=== PATIENT | female | born 1940 | race Caucasian/White ===

== ENCOUNTER 2022-08-14 17:00 | Inpatient (IN) | payer MEDICARE ==
[~2022-08-14] VITALS: Ht 154.9 cm; Wt 70.8 kg
[2022-08-14 17:55] LABS: BASOPHILS % 0.7 % (0.0-1.0); EOSINOPHILS # (AUTO) 0.2 (0.0-0.4); EOSINOPHILS % 3.8 % (0.0-6.0); HEMATOCRIT 39.5 % (34.2-44.1); HEMOGLOBIN 12.9 g/dL (12.0-16.0); LYMPHOCYTES % 35.6 % (18.0-39.1); MEAN CORPUSCULAR HEMOGLOBIN 29.7 pg (28-32); MEAN CORPUSCULAR HGB CONC 32.7 g/dL (31-35); MEAN CORPUSCULAR VOLUME 90.8 fL (81-99); MONOCYTES # (AUTO) 0.6 (0.2-0.8); MONOCYTES % 9.9 % (4.4-11.3); NEUTROPHILS # (AUTO) 2.7 (2.1-6.9); NEUTROPHILS % 48.6 % (38.7-80.0); PLATELET COUNT 243 x10e3/uL (140-360); RED BLOOD COUNT 4.35 x10e6/uL (3.6-5.1); RED CELL DISTRIBUTION WIDTH 13.9 % (11.7-14.4)
[2022-08-14 17:58] LABS: INR 1.35; PARTIAL THROMBOPLASTIN TIME 28.5 seconds (23.8-35.5); PROTHROMBIN TIME 16.9 seconds (11.9-14.5)
[2022-08-14 18:05] LABS: ALBUMIN 4.1 g/dL (3.5-5.0); ALBUMIN/GLOBULIN RATIO 1.3 (0.8-2.0); ANION GAP 15.3 mmol/L (8-16); CALCIUM 10.3 mg/dL (8.4-10.2); CREATININE, SERUM 0.98 mg/dL (0.57-1.11); POTASSIUM 4.3 mmol/L (3.5-5.1)
[2022-08-14 18:12] LABS: CREATINE KINASE MB 1.1 ng/mL (0-5.0)
[2022-08-14 18:19] LABS: COLOR,URINE YELLOW (YELLOW)
[2022-08-14 18:20] LABS: CLARITY,URINE CLEAR (CLEAR); KETONES,URINE NEGATIVE (NEGATIVE); LEUKOCYTE ESTERASE ,URINE TRACE (NEGATIVE); NITRITE,URINE NEGATIVE (NEGATIVE); PROTEIN,URINE DIPSTICK NEGATIVE (NEGATIVE); URINE UROBILINOGEN 0.2 mg/dL (0.2 - 1)
[2022-08-14 18:25] LABS: BACTERIA,URINE RARE /HPF; EPITHELIAL CELLS,URINE RARE /LPF; RBC,URINE 0-5 /HPF (0-5); WBC,URINE (MAN) 0-5 /HPF (0-5)
[2022-08-14] MEDS ORDERED: ASPIRIN 81 MG CHEW TAB PO ONE (20:00)
[2022-08-14] MEDS ORDERED: ONDANSETRON HCL INJ 2MG/ML 2ML 2 MG/ML VIAL IV PRN (20:00)
[2022-08-14] MEDS ORDERED: SODIUM CHLORIDE FLUSH 10 ML SYR INJ PRN (20:00)
[2022-08-14 22:01] VITALS: BP 126/61
[2022-08-14 22:03] VITALS: BP 126/61
[2022-08-14 22:13] VITALS: BP 126/61
[2022-08-14 22:23] VITALS: BP 126/61
[2022-08-14] MEDS ORDERED: METOPROLOL TART25 MG PO (23:19)
[2022-08-14] MEDS ORDERED: VITAMIN B-121000 MCG PO (23:19)
[2022-08-14] MEDS ORDERED: ELIQUIS5 MG PO (23:19)
[2022-08-14] MEDS ORDERED: METFORMIN HCL500 M2 PO (23:19)
[2022-08-14] MEDS ORDERED: ROSUVASTATIN PO (23:19)
[2022-08-14] MEDS ORDERED: SERTRALINE HCL50 MG PO (23:19)
[2022-08-14] MEDS ORDERED: OS-CAL 500+D T1 EACH PO (23:19)
[2022-08-15] VITALS (7 sets, daily range): BP systolic 108–133; BP diastolic 54–74
[2022-08-15 06:23] LABS: BASOPHILS % 0.6 % (0.0-1.0); EOSINOPHILS # (AUTO) 0.2 (0.0-0.4); EOSINOPHILS % 4.3 % (0.0-6.0); HEMATOCRIT 34.7 % (34.2-44.1); HEMOGLOBIN 11.3 g/dL (12.0-16.0); LYMPHOCYTES # (AUTO) 2.2 (1.0-3.2); LYMPHOCYTES % 44.1 % (18.0-39.1); MEAN CORPUSCULAR HEMOGLOBIN 29.4 pg (28-32); MEAN CORPUSCULAR HGB CONC 32.6 g/dL (31-35); MEAN CORPUSCULAR VOLUME 90.1 fL (81-99); MONOCYTES # (AUTO) 0.5 (0.2-0.8); MONOCYTES % 9.8 % (4.4-11.3); NEUTROPHILS # (AUTO) 2.1 (2.1-6.9); PLATELET COUNT 206 x10e3/uL (140-360); RED BLOOD COUNT 3.85 x10e6/uL (3.6-5.1)
[2022-08-15 06:52] LABS: ALBUMIN 3.3 g/dL (3.5-5.0); ALBUMIN/GLOBULIN RATIO 1.2 (0.8-2.0); ANION GAP 13.9 mmol/L (8-16); CALCIUM 9.1 mg/dL (8.4-10.2); CREATININE, SERUM 0.81 mg/dL (0.57-1.11); POTASSIUM 3.9 mmol/L (3.5-5.1)
[2022-08-15] MEDS ORDERED: SODIUM CHLORIDE 0.9% 100 ML ONE (06:57)
[2022-08-15] MEDS ORDERED: IOPAMIDOL 370 MG/ML 100 ML INFUS..BTL INJ ONE (06:57)
[2022-08-15] MEDS ORDERED: ACETAMINOPHEN 325 MG TAB PO PRN (10:45)
[2022-08-15 11:50] LABS: CREATINE KINASE MB 0.8 ng/mL (0-5.0)
[2022-08-15 12:01] LABS: FREE THYROXINE INDEX 2.013 (1.4-3.8); THYROID STIMULATING HORMONE 2.273 uIU/mL (0.350-4.940)
[2022-08-15] MEDS ORDERED: DEXTROSE 50% SYRINGE 50 ML IV PRN (12:15)
[2022-08-15] MEDS ORDERED: METFORMIN HCL 500 MG TAB CR PO SCH (17:00)
[2022-08-15] MEDS: APIXABAN 5 MG TABLET PO SCH (17:00)
[2022-08-15] MEDS: INSULIN REGULAR, HUMAN 100 UNIT/1 ML SQ SCH ×2 (17:07→21:00)
[2022-08-15] MEDS ORDERED: SERTRALINE HCL 50 MG TAB PO SCH (21:00)
[2022-08-16] VITALS: BP 122/80
[2022-08-16 04:00] VITALS: BP 130/76
[2022-08-16] MEDS: APIXABAN 5 MG TABLET PO SCH (08:21)
[2022-08-16 09:00] VITALS: BP 113/65
[2022-08-16] MEDS ORDERED: ROSUVASTATIN 5 MG PO SCH (09:00)
[2022-08-16] MEDS ORDERED: CRESTOR 10MG PO SCH (09:00)
[2022-08-16] MEDS ORDERED: CYANOCOBALAMIN 1,000 MCG TAB PO SCH (09:00)
[2022-08-16] MEDS ORDERED: SERTRALINE HCL 50 MG TAB PO SCH (09:00)
[2022-08-16] MEDS ORDERED: METOPROLOL TARTRATE 25 MG TAB PO SCH (09:00)
[2022-08-16] MEDS: INSULIN REGULAR, HUMAN 100 UNIT/1 ML SQ SCH ×2 (09:27→12:39)
[2022-08-16 12:34] VITALS: BP 130/66
[2022-08-17] MEDS ORDERED: METFORMIN HCL 500 MG TAB CR PO SCH (08:00)
== END 2022-08-16 15:40 | disposition home or self-care (01) | DRG 310 ==
LOC: ER 17:17 → ERHOLD 19:53 → MED/SURG2 20:10 → OBSVTOIN 08-16 11:31
PROVIDERS: ADMIT Internal Medicine; ATTEND Internal Medicine
DX: I49.5 Sick sinus syndrome (principal); R55 Syncope and collapse; R00.2 Palpitations; I10 Essential (primary) hypertension; E11.9 Type 2 diabetes mellitus without complications; E78.00 Pure hypercholesterolemia, unspecified; R00.8 Other abnormalities of heart beat; I48.0 Paroxysmal atrial fibrillation; Z20.822 Contact with and (suspected) exposure to COVID-19; Z90.49 Acquired absence of other specified parts of digestive tract; Z79.84 Long term (current) use of oral hypoglycemic drugs; Z79.01 Long term (current) use of anticoagulants
CPT/HCPCS: 36415; 70496; 70498; 71045; 80053; 81001; 82550; 82553; 82948; 83880; 84436; 84443; 84479; 84484; 85025; 85610; 85730; 93005; 93306; 99284; G0378; J1817; J7050; Q9967